=== PATIENT | male | born 1980 | race Caucasian/White ===

== ENCOUNTER 2018-01-31 06:49 | Emergency (ER) | payer SELFPAY ==
[2018-01-31] MEDS ORDERED: ONDANSETRON 4 MG/2 ML VIAL ONE (07:33)
[2018-01-31] MEDS ORDERED: FAMOTIDINE 20 MG/2 ML VIAL IV ONE (07:33)
[2018-01-31 08:26] LABS: ALT/SGPT 25 U/L (12-78); AST/SGOT 15 U/L (15-37); Albumin 3.8 g/dL (3.4-5.0); Alkaline Phosphatase 76 U/L (45-117); BUN Blood Urea Nitrogen 18 mg/dL (7-18); Bicarbonate 29 mmol/L (21-32); Bilirubin Direct < 0.1 mg/dL (0-0.2); Bilirubin Total 0.3 mg/dL (0.2-1.0); Glucose Level 101 mg/dL (74-106); Lipase 120 U/L (73-393); Potassium 4.3 mmol/L (3.5-5.1); Protein, Total 6.9 g/dL (6.4-8.2); Sodium Level 143 mmol/L (136-145)
[2018-01-31 08:31] LABS: Absolute Lymphocytes (CBC) 0.6 K/uL (0.7-4.9); Absolute Monocytes 0.7 K/uL (0.1-1.3); Absolute Neutrophil 7.8 K/uL (1.8-8.0); Basophils % 0.1 % (0-1.3); Eosinophils % 3.2 % (0-4.4); Hematocrit 45.1 % (39.6-49.0); Lymphocytes % 6.2 % (15.3-44.8); MCH 29.6 pg (27.0-35.0); MCV 87.6 fL (80-100); MPV 9.2 fL (7.6-11.3); Monocytes % 7.4 % (3.3-12.3); RBC Red Blood Cell Count 5.15 M/uL (4.33-5.43)
--- NOTE | 2018-01-31 09:20 | ER ---
Nurse's Notes [facility] Name: Wilfrido Torres Jr Age: 37 yrs Sex: Male : 1980 Arrival Date: 01/31/2018 Time: 06:55 Bed 13 Private MD: Diagnosis: Unspecified abdominal pain;Vomiting Presentation: 01/31 07:04 Presenting complaint: Patient states: " I am having a burning pain from the bottom of ph my stomach all the way up to my throat. I've had heartburn for a while but this has been really bad." Pt also reports N/V, denies diarrhea or fever. Transition of care: patient was not received from another setting of care. Onset of symptoms was January 31, 2018. Risk Assessment: Do you want to hurt yourself or someone else? Patient reports no desire to harm self or others. Initial Sepsis Screen: Does the patient meet any 2 criteria? No. Patient's initial sepsis screen is negative. Does the patient have a suspected source of infection? No. Patient's initial sepsis screen is negative. Care prior to arrival: None. 07:04 Method Of Arrival: Ambulatory ph 07:04 Acuity: JAYSHREE 3 ph Historical: - Allergies: 07:06 No Known Allergies; ph - Home Meds: 07:06 None [Active]; ph - PMHx: 07:06 None; ph - PSHx: 07:06 None; ph - Immunization history:: Adult Immunizations unknown. - Social history:: Smoking status: Patient uses tobacco products, smokes one pack cigarettes per day. - Ebola Screening: : No symptoms or risks identified at this time. Screenin:03 Abuse screen: Denies threats or abuse. Nutritional screening: Has had N/V for 3 or more rb1 days. Tuberculosis screening: No symptoms or risk factors identified. Fall Risk None identified. Assessment: 07:03 General: Appears in no apparent distress. comfortable, Behavior is calm, cooperative, rb1 Denies fever. Pain: Complains of pain in epigastric area Pain currently is 7 out of 10 on a pain scale. Pain began Tuesday. Neuro: Level of Consciousness is awake, alert, obeys commands, Oriented to person, place, time, situation. Cardiovascular: Capillary refill < 3 seconds is brisk in bilateral fingers. Respiratory: Airway is patent Respiratory effort is even, unlabored, Respiratory pattern is regular, symmetrical. GI: Abdomen is flat, Reports nausea, vomiting, since Tuesday. : No signs and/or symptoms were reported regarding the genitourinary system. Derm: Skin is pink, warm \\T\\ dry. 08:00 Reassessment: Patient appears in no apparent distress at this time. No changes from rb1 previously documented assessment. 09:00 Reassessment: Patient appears in no apparent distress at this time. Patient and/or rb1 family updated on plan of care and expected duration. Pain level reassessed. Patient is alert, oriented x 3, equal unlabored respirations, skin warm/dry/pink. Patient states symptoms have improved. Vital Signs: 07:05 BP 128 / 83; Pulse 62; Resp 18; Temp 99.0(TE); Pulse Ox 98% on R/A; Weight 81.65 kg; ph Height 6 ft. 0 in. (182.88 cm); Pain 7/10; 07:30 BP 126 / 77; Pulse 53; Resp 17; Pulse Ox 96% ; jl7 08:30 BP 113 / 81; Pulse 61; Resp 16; Pulse Ox 100% on R/A; Pain 4/10; rb1 09:30 BP 114 / 78; Pulse 59; Resp 17; Pulse Ox 96% on R/A; rb1 07:05 Body Mass Index 24.41 (81.65 kg, 182.88 cm) ph ED Course: 06:55 Patient arrived in ED. es 06:58 Clemente Ponce NP is PHCP. pm1 06:58 Lopez Harvey MD is Attending Physician. pm1 07:03 Patient has correct armband on for positive identification. Bed in low position. Call rb1 light in reach. Side rails up X 1. Pulse ox on. NIBP on. 07:05 Triage completed. ph 07:06 Arm band placed on. ph 07:22 Monica Mota, ANGELICA is Primary Nurse. rb1 07:43 Inserted saline lock: 22 gauge in right antecubital area, using aseptic technique. rb1 Blood collected. 09:18 Thony Lynch MD is Referral Physician. pm1 09:47 No provider procedures requiring assistance completed. IV discontinued, intact, rb1 bleeding controlled, No redness/swelling at site. Pressure dressing applied. Administered Medications: 07:43 Drug: Pepcid 20 mg Route: IVP; Site: right antecubital; rb1 08:00 Follow up: Response: No adverse reaction; Marked relief of symptoms rb1 07:43 Drug: Zofran 4 mg Route: IVP; Site: right antecubital; rb1 08:00 Follow up: Response: No adverse reaction; Nausea is decreased rb1 09:20 Drug: GI Cocktail without - (Maalox Suspension 30 ml, Lidocaine Liquid 2 % 15 rb1 ml) Route: PO; 09:45 Follow up: Response: No adverse reaction; Marked relief of symptoms rb1 Outcome: 09:19 Discharge ordered by . pm1 09:47 Discharged to home ambulatory. rb1 09:47 Condition: stable 09:47 Discharge instructions given to patient, Instructed on discharge instructions, follow up and referral plans. medication usage, Demonstrated understanding of instructions, follow-up care, medications, Prescriptions given X 2. 09:47 Patient left the ED. rb1 Signatures: Emma Pittman Patricia RN RN ph Monica Mota RN RN rb1 Clemente Ponce NP [employer] SALES AGENT pm1 Adrian Millan RN RN jl7 Corrections: (The following items were deleted from the chart) 07:25 07:03 GI: Abdomen is flat, rb1 rb1
--- NOTE | 2018-01-31 09:20 | EDPHYS ---
Physician Documentation [facility] Name: Wilfrido Torres Jr Age: 37 yrs Sex: Male : 1980 Arrival Date: 01/31/2018 Time: 06:55 Bed 13 Private MD: ED Physician Lopez Harvey HPI: 01/31 07:05 This 37 yrs old Male presents to ER via Unassigned with complaints of pm1 Vomiting, pain from throat to abd. 07:05 The patient presents to the emergency department with vomiting, abdominal pain, of the pm1 epigastric area, described as burning, constant, and does not radiate. Onset: The symptoms/episode began/occurred Worse the past four days but ongoing for multiple years. Possible causes: unknown. The symptoms are aggravated by food , The symptoms are alleviated by antacids, Zantac and Tums. Associated signs and symptoms: Pertinent positives: abdominal pain, vomiting, Pertinent negatives: diarrhea, dysuria, fever. Severity of symptoms: in the emergency department the symptoms are worse. The patient has experienced similar episodes in the past, chronically, but today's symptoms are worse. The patient has not recently seen a physician, and does not have an established primary care provider. Patient with history of burning with eating food for multiple years. Has been treating with OTC Zantac and Tums as needed. For the past four days, his symptoms have gotten worse. Patient presents today with burning from his epigastric area to his throat. He took some Zantac and TUMS on Tuesday and it helped for a few hours. Historical: - Allergies: 07:06 No Known Allergies; ph - Home Meds: 07:06 None [Active]; ph - PMHx: 07:06 None; ph - PSHx: 07:06 None; ph - Immunization history:: Adult Immunizations unknown. - Social history:: Smoking status: Patient uses tobacco products, smokes one pack cigarettes per day. - Ebola Screening: : No symptoms or risks identified at this time. ROS: 07:10 Constitutional: Negative for fever, chills, and weight loss, Eyes: Negative for injury, pm1 pain, redness, and discharge, ENT: Negative for injury, pain, and discharge, Neck: Negative for injury, pain, and swelling, Cardiovascular: Negative for chest pain, palpitations, and edema, Respiratory: Negative for shortness of breath, cough, wheezing, and pleuritic chest pain. 07:10 Back: Negative for injury and pain, : Negative for injury, bleeding, discharge, and swelling, MS/Extremity: Negative for injury and deformity, Skin: Negative for injury, rash, and discoloration, Neuro: Negative for headache, weakness, numbness, tingling, and seizure. 07:10 Abdomen/GI: Positive for abdominal pain, vomiting, Negative for diarrhea. Exam: 07:10 Constitutional: This is a well developed, well nourished patient who is awake, alert, pm1 and in no acute distress. Head/Face: Normocephalic, atraumatic. Eyes: Pupils equal round and reactive to light, extra-ocular motions intact. Lids and lashes normal. Conjunctiva and sclera are non-icteric and not injected. Cornea within normal limits. Periorbital areas with no swelling, redness, or edema. ENT: Nares patent. No nasal discharge, no septal abnormalities noted. Tympanic membranes are normal and external auditory canals are clear. Oropharynx with no redness, swelling, or masses, exudates, or evidence of obstruction, uvula midline. Mucous membranes moist. Neck: Trachea midline, no thyromegaly or masses palpated, and no cervical lymphadenopathy. Supple, full range of motion without nuchal rigidity, or vertebral point tenderness. No Meningismus. Chest/axilla: Normal chest wall appearance and motion. Nontender with no deformity. No lesions are appreciated. Cardiovascular: Regular rate and rhythm with a normal S1 and S2. No gallops, murmurs, or rubs. Normal PMI, no JVD. No pulse deficits. Respiratory: Lungs have equal breath sounds bilaterally, clear to auscultation and percussion. No rales, rhonchi or wheezes noted. No increased work of breathing, no retractions or nasal flaring. Back: No spinal tenderness. No costovertebral tenderness. Full range of motion. Skin: Warm, dry with normal turgor. Normal color with no rashes, no lesions, and no evidence of cellulitis. MS/ Extremity: Pulses equal, no cyanosis. Neurovascular intact. Full, normal range of motion. 07:10 Abdomen/GI: Inspection: abdomen appears normal, Bowel sounds: normal, Palpation: abdomen is soft and non-tender, in all quadrants, mass, is not appreciated, rebound tenderness, is not appreciated. 07:10 Neuro: Orientation: is normal, Motor: is normal, moves all fours, strength is normal. Vital Signs: 07:05 BP 128 / 83; Pulse 62; Resp 18; Temp 99.0(TE); Pulse Ox 98% on R/A; Weight 81.65 kg; ph Height 6 ft. 0 in. (182.88 cm); Pain 7/10; 07:30 BP 126 / 77; Pulse 53; Resp 17; Pulse Ox 96% ; jl7 08:30 BP 113 / 81; Pulse 61; Resp 16; Pulse Ox 100% on R/A; Pain 4/10; rb1 09:30 BP 114 / 78; Pulse 59; Resp 17; Pulse Ox 96% on R/A; rb1 07:05 Body Mass Index 24.41 (81.65 kg, 182.88 cm) ph MDM: 06:58 Patient medically screened. pm1 07:11 Data reviewed: vital signs. Data interpreted: Pulse oximetry: on room air is 98 %. pm1 Interpretation: normal. 09:18 Counseling: I had a detailed discussion with the patient and/or guardian regarding: the pm1 historical points, exam findings, and any diagnostic results supporting the discharge/admit diagnosis, lab results, the need for outpatient follow up, for definitive care, a clerical assistant, to return to the emergency department if symptoms worsen or persist or if there are any questions or concerns that arise at home. 01/31 07:02 Order name: Basic Metabolic Panel; Complete Time: 09:07 pm1 01/31 07:02 Order name: CBC with Diff; Complete Time: 09:07 pm01/31 07:02 Order name: Hepatic Function; Complete Time: 09:07 pm01/31 07:02 Order name: Lipase; Complete Time: 09:07 pm01/31 07:04 Order name: Troponin (emerg Dept Use Only); Complete Time: 09:07 pm01/31 08:32 Order name: Urine Dipstick--Ancillary (enter results) eb 01/31 07:02 Order name: IV Saline Lock; Complete Time: 07:49 pm1 01/31 07:02 Order name: Labs collected and sent; Complete Time: 07:49 pm1 01/31 07:02 Order name: Urine Dipstick-Ancillary (obtain specimen); Complete Time: 08:32 pm1 01/31 07:04 Order name: EKG; Complete Time: 07:05 pm1 01/31 07:04 Order name: EKG - Nurse/Tech; Complete Time: 07:49 pm1 Administered Medications: 07:43 Drug: Pepcid 20 mg Route: IVP; Site: right antecubital; rb1 08:00 Follow up: Response: No adverse reaction; Marked relief of symptoms rb1 07:43 Drug: Zofran 4 mg Route: IVP; Site: right antecubital; rb1 08:00 Follow up: Response: No adverse reaction; Nausea is decreased rb1 09:20 Drug: GI Cocktail without - (Maalox Suspension 30 ml, Lidocaine Liquid 2 % 15 rb1 ml) Route: PO; 09:45 Follow up: Response: No adverse reaction; Marked relief of symptoms rb1 Disposition: 01/31/18 09:19 Discharged to Home. Impression: Unspecified abdominal pain, Vomiting. - Condition is Stable. - Discharge Instructions: Abdominal Pain, Adult, Gastroesophageal Reflux Disease, Adult. - Prescriptions for Pepcid 20 mg Oral Tablet - take 1 tablet by ORAL route every 12 hours for 10 days; 20 tablet. Zofran 4 mg Oral Tablet - take 1 tablet by ORAL route every 8 hours As needed; 20 tablet. - Medication Reconciliation Form, Thank You Letter form. - Follow up: Emergency Department; When: As needed; Reason: Worsening of condition. Follow up: Thony Lynch MD; When: 2 - 3 days; Reason: Recheck today's complaints, Continuance of care, Re-evaluation by your physician. - Problem is new. - Symptoms have improved. Addendum: 02/05/2018 19:01 Co-signature as Attending Physician, Lopez Harvey MD. p chris Signatures: Dispatcher [employer] EDNE Lopez Harvey MD MD pkl Hall, Patricia RN RN ph Monica Mota RN RN rb1 Clemente Ponce, [employer] pm1 Corrections: (The following items were deleted from the chart) 01/31 09:47 09:19 01/31/2018 09:19 Discharged to Home. Impression: Unspecified abdominal pain; rb1 Vomiting. Condition is Stable. Forms are Medication Reconciliation Form, Thank You Letter, Antibiotic Education, Prescription Opioid Use. Follow up: Emergency Department; When: As needed; Reason: Worsening of condition. Follow up: Thony Lynch; When: 2 - 3 days; Reason: Recheck today's complaints, Continuance of care, Re-evaluation by your physician. Problem is new. Symptoms have improved. pm1
[2018-01-31] MEDS ORDERED: LIDOCAINE VISCOUS 2% SOLN 15 ML UDC ONE (09:26)
[2018-01-31] MEDS ORDERED: MAGNE/ALUM HYDROXD 30 ML UCUP ONE (09:26)
--- NOTE | 2018-01-31 12:20 | EKG ---
Test Date: 2018-01-31 Test Time: 07:44:40 Chief Juvenile Probation Officer: MARCELLA MEASUREMENT RESULTS: Intervals: Rate: 51 MN: 146 QRSD: 100 QT: 416 QTc: 383 [place]: P: 55 MN: 146 QRS: 55 T: 60 INTERPRETIVE STATEMENTS: Sinus bradycardia Otherwise normal ECG No previous ECG available for comparison Electronically Signed On 01-31-18 12:18:52 CDT by Ike Clement
[2018-01-31 14:20] LABS: Urine Blood NEGATIVE (NEG); Urine Glucose NEGATIVE (NEG); Urine Protein NEGATIVE (NEG); Urine pH 7.5 (5.0-7.0)
== END 2018-01-31 09:47 | disposition home or self-care (01) ==
LOC: ER 06:49
DX: R10.9 Unspecified abdominal pain (principal); F17.210 Nicotine dependence, cigarettes, uncomplicated
CPT/HCPCS: 36415; 80048; 80076; 81003; 83690; 84484; 85025; 93005; 96374; 96375; 99284; J2405